=== PATIENT | female | born 1940 | race Caucasian/White ===

== ENCOUNTER 2017-12-23 21:35 | Emergency (ER) | payer MEDICARE, OTHER ==
[2017-12-23] MEDS ORDERED: Tetracaine 0.5% OPTH.SOL 4 ML* 1 DROP BTL ONE (22:43)
[2017-12-23] MEDS ORDERED: Fluorescein Sod TOPICAL 0.6* 0.6 MG TEST OPHTHALMIC ONE (22:43)
[2017-12-23] MEDS ORDERED: Polymyx/Trimethoprim OPTH* 10 ML BTL LEFT EYE ONE (23:29)
--- NOTE | 2017-12-23 23:29 | ED ---
Throat Pain/Nasal Congestion - HPI Summary HPI Summary: 77-year-old female presents with potential foreign body in the left eye. She states that she was gardening and may have gotten dust into her eye. States her pain started shortly after. She states this feels like the object was in her eye. She states that she tried flushing out her eye feels that some of the particles have been removed. She states her eyes has been tearing. She denies any change in vision. No photophobia. She does wear glasses. She has an eye doctor. Believes immunizations are up-to-date. Has history of hypertension. He is not diabetic. - History of Current Complaint Chief Complaint: EDEyeProblem Time Seen by Provider: 12/23/17 22:43 - Allergies/Home Medications Allergies/Adverse Reactions: Allergies Allergy/AdvReac Type Severity Reaction Status Date / Time MS Chlortetracycline Allergy HIVES, Verified 07/09/14 11:52 [From Aureomycin] VOMITING MS Erythromycin Allergy Hives Verified 07/09/14 11:52 [Erythromycin] MANGOES Allergy HIVES, Uncoded 07/09/14 11:52 LIPS SWELL SHOWER WITH SOFT WATER Allergy Rash Uncoded 07/09/14 11:52 PMH/Surg Hx/FS Hx/Imm Hx Endocrine/Hematology History: Denies: Hx Anticoagulant Therapy, Hx Blood Disorders, Hx Blood Transfusions, Hx Bone Marrow Disease, Hx Diabetes, Hx Systemic Lupus Erythematosus, Hx Sickle Cell Disease, Hx Thyroid Disease, Hx Anemia, Hx Unexplained Bleeding, Other Endocrine/Hematological Disorders Cardiovascular History: Reports: Hx Coronary Artery Disease - CHOLESTEROL CONTROL WITH MEDS, Hx Hypertension GI History: Reports: Hx Jaundice - HX OF IN 1967-NO PROBLEMS NOW, WAS R/T [employer] WHILE IN [place] [employer], Other GI Disorders - VOMITING WITH SOME MEDICATIONS Musculoskeletal History: Denies: Hx Arthritis, Hx Back Problems, Hx Bursitis, Hx Congenital Bone Abnormalities, Hx Fibromyalgia, Hx Gout, Hx Orthopedic Injury, Hx Osteoporosis, Hx Scoliosis, Hx Tendonitis, Other Musculoskeletal History Sensory History: Denies: Hx Contacts or Glasses, Hx Hearing Aid Opthamlomology History: Denies: Hx Contacts or Glasses - Surgical History Surgery Procedure, Year, and Place: BUNION LEFT FOOT, OVARIAN CYST, C SECTION Hx Anesthesia Reactions: No - Immunization History Date of Tetanus Vaccine: unk Date of Influenza Vaccine: unk Infectious Disease History: No Infectious Disease History: Denies: Hx Clostridium Difficile, Hx Hepatitis, Hx Human Immunodeficiency Virus (HIV), Hx of Known/Suspected MRSA, Hx Shingles, Hx Tuberculosis, Traveled Outside the [place] in Last 30 Days - Family History Known Family History: Positive: Hypertension - Social History Alcohol Use: Occasionally Substance Use Type: Reports: None Smoking Status (MU): Never Smoked Tobacco Review of Systems Negative: Fever Positive: Erythema, Other - potenital foreign body Negative: Chest Pain Negative: Shortness Of Breath All Other Systems Reviewed And Are Negative: Yes Physical Exam Triage Information Reviewed: Yes Vital Signs On Initial Exam: Initial Vitals Temp Pulse Resp BP Pulse Ox 97.6 F 74 20 150/90 98 12/23/17 21:41 12/23/17 21:41 12/23/17 21:41 12/23/17 21:41 12/23/17 21:41 Vital Signs Reviewed: Yes Appearance: Positive: Well-Appearing Skin: Positive: Warm, Dry Head/Face: Positive: Normal Head/Face Inspection Eyes: Positive: EOMI, EUNICE, Conjunctiva Inflammed, Discharge - watery, Other: - no foreign body on fluorscein exam ENT: Positive: Pharynx normal Respiratory/Lung Sounds: Positive: Clear to Auscultation, Breath Sounds Present Cardiovascular: Positive: Normal, RRR Musculoskeletal: Positive: Normal Neurological: Positive: Normal Psychiatric: Positive: Normal Procedures - Eye Procedure left Alcaine Drops Administered: Yes - no uptake seen Eye Irrigated w/ Saline (ccs): 1,000 Diagnostics - Vital Signs Vital Signs Temp Pulse Resp BP Pulse Ox 12/23/17 21:41 97.6 F 74 20 150/90 98 - Laboratory Lab Statement: Any lab studies that have been ordered have been reviewed, and results considered in the medical decision making process. EENT Course/Dx - Course Course Of Treatment: 77-year-old female presents with potential foreign body in the left eye. She states that she was gardening and may have gotten dust into her eye. States her pain started shortly after. She states this feels like the object was in her eye. She states that she tried flushing out her eye feels that some of the particles have been removed. She states her eyes has been tearing. She denies any change in vision. No photophobia. She does wear glasses. She has an eye doctor. Believes immunizations are up-to-date. Has history of hypertension. He is not diabetic. On exam of conjunctiva injected. No foreign body seen. No uptake on fluorescein exam. Did Mejia lens and feeling little bit better. Will place on [place] and have follow-up with eye doctor. Patient understands agrees with plan. - Differential Diagnoses Differential Diagnoses: Conjunctivitis, Corneal Abrasion, Foreign Body - Diagnoses Provider Diagnoses: Foreign body of left eye Discharge - Sign-Out/Discharge Documenting (check all that apply): Discharge/Admit/Transfer - Discharge Plan Condition: Good Disposition: HOME Patient Education Materials: Eye Foreign Body (ED) Referrals: Madalyn Yen MD [Primary Care Provider] - Additional Instructions: Place 1 drop in eye 4 times a day for 5 days Use artificial tears or saline to rinse eye for symptomatic relief Take Tylenol or ibuprofen for pain Follow up with ophthalmology if no improvement in 5 days Return to ED if develop any new or worsening symptoms - Billing Disposition and Condition Condition: GOOD Disposition: Home
[2017-12-23 23:50] VITALS: BP 178/98
== END 2017-12-23 23:49 | disposition home or self-care (01) ==
LOC: ED 21:35
DX: T15.92XA Foreign body on external eye, part unspecified, left eye, initial encounter (principal); Z86.79 Personal history of other diseases of the circulatory system; I25.10 Atherosclerotic heart disease of native coronary artery without angina pectoris
CPT/HCPCS: 99282; A9270-GY

== ENCOUNTER 2018-03-03 08:40 | Emergency (ER) | payer MEDICARE, OTHER ==
[2018-03-03 09:09] VITALS: BP 130/80
--- NOTE | 2018-03-06 10:56 | UC ---
Discharge - Sign-Out/Discharge Documenting (check all that apply): Post-Discharge Follow Up All imaging exams completed and their final reports reviewed: No Studies - Discharge Plan Condition: Stable Disposition: HOME Referrals: Madalyn Yen MD [Primary Care Provider] - - Billing Disposition and Condition Condition: STABLE Disposition: Home
== END 2018-03-03 09:05 | disposition home or self-care (01) ==
LOC: UCEAST 08:40
DX: S91.202A Unspecified open wound of left great toe with damage to nail, initial encounter (principal); X58.XXXA Exposure to other specified factors, initial encounter; Y93.66 Activity, soccer; Y92.322 Soccer field as the place of occurrence of the external cause; L60.0 Ingrowing nail; K21.9 Gastro-esophageal reflux disease without esophagitis; F41.9 Anxiety disorder, unspecified; Z88.0 Allergy status to penicillin
CPT/HCPCS: 99211; G0463

== ENCOUNTER 2023-07-04 07:32 | Observation (INO) ==
[~2023-07-04 07:32] MED LIST: Buffered Lidocaine 1% SYRIN 1 ml INTRADERM ONE; Lactated Ringers 1000 ml BAG 1,000 ML IV SCH
[2023-07-04] MEDS ORDERED: ceFAZolin 2 GM in NS PREMIX 2 GM/100 ML BAG IVPB ONE (08:05)
[2023-07-04 08:34] LABS: Rapid COVID-19 Molecular Undetected (Undetected)
[2023-07-04] MEDS ORDERED: Rocuronium 50 mg VIAL 10 mg/ml 5 ml VIAL (50 mg) ONE (08:45)
[2023-07-04] MEDS ORDERED: fentaNYL 100 mcg/2 ml 50 MCG/ML VIAL ONE (08:46)
[2023-07-04] MEDS ORDERED: fentaNYL 100 mcg/2 ml 50 MCG/ML VIAL IV PRN (08:53)
[2023-07-04] MEDS ORDERED: Naloxone 0.4 mg VIAL 0.4 mg/ml 1 ml VIAL IV PRN (08:53)
[2023-07-04] MEDS ORDERED: Ondansetron 4 mg VIAL 2 MG/ML 2 ml VIAL IV PRN ×2 (08:53→11:36)
[2023-07-04] MEDS ORDERED: ceFAZolin VIAL VIAL ONE (09:40)
[2023-07-04] MEDS ORDERED: Lidocaine 1% w EPI 1:100,000 MDV 20 ML VIAL ONE (09:40)
[2023-07-04] MEDS ORDERED: Gelfoam Sponge SIZE 100 SPONGE ONE (09:40)
[2023-07-04] MEDS ORDERED: Thrombin 5,000 UNITS 1 APPLIC KIT - topical use - TOPICAL ONE (09:40)
[2023-07-04] MEDS ORDERED: Phenylephrine IV 10 MG/ML 1 ml VIAL ONE (10:48)
[2023-07-04] MEDS ORDERED: Calcium Carb (TUMS) 500 mg CHEW TAB PO PRN (11:36)
[2023-07-04] MEDS ORDERED: Phenol 1.4% Throat Spray BTL MT PRN (11:36)
[2023-07-04] MEDS ORDERED: Morphine 2 MG/ML SYRINGE IV PRN (11:36)
[2023-07-04] MEDS ORDERED: Dextran 70/Hypromellose Tears Eye Drops 15 ml BTL (for Artificials Tears) BOTH EYES PRN (11:36)
[2023-07-04] MEDS ORDERED: Benzocaine/Menthol LOZ MT PRN (11:36)
[2023-07-04] MEDS ORDERED: Senna TAB 8.6 mg TAB PO PRN (11:36)
[2023-07-04] MEDS ORDERED: HYDROcodone/ACETAMIN 5/325 mg TAB PO PRN ×2 (11:36)
[2023-07-04] MEDS ORDERED: Lactated Ringers 1000 ml BAG 1,000 ML IV SCH (12:00)
[2023-07-05 10:09] VITALS: BP 96/55
== END 2023-07-05 13:30 | disposition home or self-care (01) ==
LOC: OR 07:32 → SSU 07:32
PROVIDERS: ADMIT Neurological Surgery; ATTEND Neurological Surgery

== ENCOUNTER 2023-10-14 06:44 | Observation (INO) ==
[2023-10-14 07:43] LABS: Rapid COVID-19 Molecular Undetected (Undetected)
[2023-10-14] MEDS ORDERED: ceFAZolin 2 GM PREMIX 2 GM/50 ML BAG ONE (07:56)
[2023-10-14] MEDS ORDERED: Tranexamic Acid 1 GM/100ML BAG 2,000 MG/200 ML BAG IV ONE (07:57)
[2023-10-14] MEDS ORDERED: Famotidine IV 10 MG/ML 2 ml VIAL (20 mg) ONE (07:57)
[2023-10-14] MEDS ORDERED: Lidocaine 2% PF 5 ML VIAL ONE (08:01)
[2023-10-14] MEDS ORDERED: Propofol 10 MG/ML 20 ML BTL ONE (08:01)
[2023-10-14] MEDS ORDERED: fentaNYL 100 mcg/2 ml 50 MCG/ML VIAL ONE ×3 (08:03→12:03)
[2023-10-14] MEDS ORDERED: Midazolam 2 mg/2 ml VIAL 1 mg/ml 2 ml VIAL (2 mg) ONE ×2 (08:04→08:26)
[2023-10-14] MEDS ORDERED: Rocuronium 50 mg VIAL 10 mg/ml 5 ml VIAL (50 mg) ONE (08:04)
[2023-10-14] MEDS: Famotidine IV 10 MG/ML 2 ml VIAL (20 mg) IV ONE (08:30)
[2023-10-14] MEDS: Lactated Ringers 1000 ml BAG 1,000 ML IV SCH ×2 (08:34→14:48)
[2023-10-14] MEDS ORDERED: ROPIVACAINE 5 MG/ML 30 ML BTL (0.5%) ONE ×2 (08:38→09:06)
[2023-10-14] MEDS ORDERED: Naloxone 0.4 mg VIAL 0.4 mg/ml 1 ml VIAL IV PRN (09:01)
[2023-10-14] MEDS ORDERED: HYDROmorphone 0.5 MG/0.5 ML SYRINGE ONE ×2 (09:51→10:56)
[2023-10-14] MEDS ORDERED: KETAMINE HCL 10 MG/ML 20 ml VIAL (200 MG) ONE (09:54)
[2023-10-14] MEDS ORDERED: Levalbuterol HFA INHALER MDI ONE (11:16)
[2023-10-14] MEDS ORDERED: Ondansetron 4 mg VIAL 2 MG/ML 2 ml VIAL IV PRN (11:34)
[2023-10-14] MEDS ORDERED: Lactulose 30 ml UDC PO PRN (11:34)
[2023-10-14] MEDS ORDERED: Morphine 2 MG/ML SYRINGE IV PRN (11:34)
[2023-10-14] MEDS ORDERED: Ondansetron ODT 4 mg TAB 4 MG TAB PO PRN (11:34)
[2023-10-14] MEDS ORDERED: Magnesium Hydroxide LIQ 30 ML UDC PO PRN (11:34)
[2023-10-14] MEDS ORDERED: HYDROmorphone 1 MG/1 ML SYRINGE ONE (11:47)
[2023-10-14] MEDS: HYDROmorphone 1 MG/1 ML SYRINGE IV PRN (11:48)
[2023-10-14] MEDS: fentaNYL 100 mcg/2 ml 50 MCG/ML VIAL IV PRN (12:17)
[2023-10-14] MEDS: ceFAZolin 1 GM ADVAN 1 GM in NS 0.9% 50 ML 50 ML IVPB SCH (18:06)
[2023-10-14] MEDS: Buffered Lidocaine 1% SYRIN 1 ml INTRADERM ONE (19:22)
[2023-10-14] MEDS: Magnesium Hydroxide LIQ 30 ML UDC PO SCH (20:52)
[2023-10-15 06:10] LABS: Hematocrit 36.1 % (35-45); Hemoglobin 12.2 g/dL (11.5-14.3); Mean Platelet Volume 7.6 fL (7.5-11.2); Platelet Count 284 10^3/uL (150-450)
[2023-10-15 06:47] LABS: Creatinine, Serum 0.85 mg/dL (0.51-0.95); Potassium 4.5 mmol/L (3.5-5.0); eGFR CKD-EPI 68.8 (>60)
[2023-10-15] MEDS: Vitamin THERAPEUTIC TAB PO SCH (08:27)
[2023-10-15 10:24] VITALS: BP 138/67
== END 2023-10-15 14:34 | disposition home or self-care (01) ==
LOC: SSU 06:44 → OR 06:44
PROVIDERS: ADMIT Orthopaedic Surgery Adult Reconstructive Orthopaedic Surgery; ATTEND Orthopaedic Surgery Adult Reconstructive Orthopaedic Surgery